=== PATIENT | male | born 1990 | race Caucasian/White ===

== ENCOUNTER 2021-02-27 09:50 | Emergency (ER) | payer OTHER, SELFPAY ==
[2021-02-27] MEDS ORDERED: Cephalexin 500 MG CAP ONE (10:10)
== END 2021-02-27 10:15 | disposition home or self-care (01) ==
LOC: MADERS 09:50
DX: L03.211 Cellulitis of face (principal); F90.9 Attention-deficit hyperactivity disorder, unspecified type; Z79.899 Other long term (current) drug therapy
CPT/HCPCS: 99283

== ENCOUNTER 2022-02-09 22:47 | Emergency (ER) | payer SELFPAY ==
[2022-02-09] MEDS ORDERED: Ibuprofen 600 MG TAB ONE (23:28)
== END 2022-02-10 00:22 | disposition home or self-care (01) ==
LOC: MADERS 22:47
DX: S06.9X9A Unspecified intracranial injury with loss of consciousness of unspecified duration, initial encounter (principal); W16.812A Jumping or diving into other water striking water surface causing other injury, initial encounter; Y93.39 Activity, other involving climbing, rappelling and jumping off; Z87.19 Personal history of other diseases of the digestive system; Z79.899 Other long term (current) drug therapy
CPT/HCPCS: 70450